=== PATIENT | male | born 1965 | race Caucasian/White ===

== ENCOUNTER 2017-02-03 16:51 | Emergency (ER) | payer BC ==
--- NOTE | ~2017-02-03 | EKG ---
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 #: [id number] Ventricular Rate: 46 BPM Atrial Rate: 46 BPM P-R Interval: 130 ms QRS Duration: 94 ms Q-T Interval: 436 ms QTC Calculation(Bezet): 381 ms P Sloan: 34 degrees Calculated R Sloan: 7 degrees Calculated T Sloan: 3 degrees Diagnosis Line: Sinus bradycardia Diagnosis Line: Minimal voltage criteria for LVH, may be normal Diagnosis Line: variant Diagnosis Line: RSR' or QR pattern in V1 suggests right Diagnosis Line: ventricular conduction delay Diagnosis Line: Borderline ECG Diagnosis Line: When compared with ECG of 21-OCT-2015 07:04, Diagnosis Line: No significant change was found Diagnosis Line: Confirmed by VICK MENDIOLA MD ([id number]) on Diagnosis Line: 02/04/2017 4:43:27 PM INTERPRETING MD: CHARLES
[~2017-02-03 16:51] MED LIST: ALLEGRA PO; ASPIRIN81 M2 PO; BETAMETHASONE V15 GM TOP; BRILINTA90 MG PO; COREG3.125 MG PO; LIPITOR20 MG PO; LIPITOR80 MG PO; LISINOPRIL5 MG PO; MEDROL PO; METOPROLOL TAR25 MG PO; MUCINEX OTC PRN; PERCOCET5/325 PO; SUDAFED PO; TOPROL XL PO; [UNRECOGNIZED DRUG - OTHER] PO
== END 2017-02-03 21:01 | disposition home or self-care (01) ==
LOC: CED 16:51
DX: M54.5 Low back pain (principal); I25.10 Atherosclerotic heart disease of native coronary artery without angina pectoris; I10 Essential (primary) hypertension
CPT/HCPCS: 93005; 96372; 99283; J1170; J1885